=== PATIENT | female | born 1975 | race Two or more races ===

== ENCOUNTER 2022-02-19 08:33 | Emergency (ER) | payer OTHER ==
[~2022-02-19] VITALS: Ht 172.7 cm; Wt 74.8 kg
[2022-02-19] MEDS ORDERED: AMOX1TAB5 (08:44)
== END 2022-02-19 13:33 | disposition home or self-care (01) ==
LOC: ER 08:33
DX: I47.1 Supraventricular tachycardia (principal); Z20.822 Contact with and (suspected) exposure to COVID-19; Z88.2 Allergy status to sulfonamides